=== PATIENT | female | born 1990 | race Caucasian/White ===

== ENCOUNTER 2016-08-16 09:31 | Inpatient (IN) ==
[2016-08-16] MEDS ORDERED: Famotidine 20 MG/2 ML VIAL IVP PRN (09:47)
[2016-08-16] MEDS ORDERED: Naloxone 0.4 MG/ML INJ IVP PRN (09:47)
[2016-08-16 10:37] LABS: Basophils % 0.3 %; Eosinophils # 0.1 K/mcL (0.0-0.6); Eosinophils % 0.6 %; Hematocrit 32.8 % (35.3-44.9); Immature Granulocytes % 0.4 % (0-4); Lymphocytes # 1.2 K/mcL (0.6-4.6); Mean Corpuscular HGB Conc 33.5 g/dL (31.6-35.5); Mean Corpuscular Hemoglobin 30.1 pg (28.0-33.3); Mean Corpuscular Volume 89.9 fL (83.0-100.0); Mean Platelet Volume 10.4 fL (9.4-12.4); Monocytes # 0.7 K/mcL (0.0-1.3); Monocytes % 8.3 %; Neutrophils # 5.9 K/mcL (1.6-8.9); Platelet Count 225 K/mcL (140-400); Red Blood Count 3.65 M/mcL (3.82-4.97); Red Cell Distribution Width 13.7 % (11.5-14.5); Segmented Neutrophils % 75.4 %
[2016-08-16 10:50] LABS: Alanine Aminotransferase 9 Units/L (0-55); Aspartate Amino Transferase 11 Units/L (5-34); BUN/Creatinine Ratio 15 (6-26); Blood Urea Nitrogen 9 mg/dL (7-20); Lactate Dehydrogenase 161 Units/L (159-327); Uric Acid 3.4 mg/dL (2.6-6.0); eGFR For African Americans > 60 (> 60); eGFR For Non-African Americans > 60 (> 60)
--- NOTE | 2016-08-16 11:17 | OB/GYN History & Physical ---
Date of Encounter: 08/16/16 Time of Encounter: 11:12 Assessment and Plan (1) 39 weeks gestation of Current visit: Yes Status: Acute admit for delivery (2) Elevated BP without diagnosis of hypertension Current visit: Yes Status: Acute PIH evaluation (3) Seizure disorder Current visit: Yes Status: Acute Continue medications as prescribed. History of Present Illness Chief complaint: Elevated BP in HPI: Ms. Velazquez is a 26 year old female at 39w6d with EDC of 08/17/2016 was sent to labor and delivery from OB office for PIH evaluation due to elevated BPs in office. Plan is to keep patient for IOL tomorrow for Dr. Harvey. Patient reports +FM, Denies contractions, LOF, patient denies headache, visual disturbances or epigastric pain. Patient does report seizure disorder and currently takes daily medication. Blood type: A Negative, Rubella: Immune, Hep B: Negative, GBS: Negative. PIH labs and protein creatinine ration was ordered. Past Med Surg Social Fam HX - Past Medical History Source: patient Medical history: seizures Psychiatric history: no psych history - Past Surgical History Surgical History: no surgical history - Social History Smoking Status: Never smoker Smokeless Tobacco Status: No Alcohol use: none Drug use: none Activity Level: Independent ambulation Recent Out of Country Travel Within the Last 8 Weeks: No Exposure or Possible Exposure to Illness During Travel: No - Family History Mother History Unknown: Yes Hx Family Cardiac Disorders: No Hx Family Respiratory Disorders: No Hx Family Cancer: No Hx Family GI Disorders: No Hx Family Endocrine Disorder: No Hx Family Neuromuscular Disorders: No Hx Family Neurologic Disorders: No Hx Family HEENT Disorders: No Hx Family Autoimmune Disorders: No Hx Family Medical Disorders: No (states mother is healthy with no known medical disorders) Obstetrical History - Pregnancies : 2 Para: 0 Term: 0 : 0 Ab's: 1 Livin Medications and Allergies Oxcarbazepine [Trileptal] 300 mg PO BID 04/23/16 [History] Pnv No.122/Iron/Folic Acid [ Multi Tablet] 1 each PO DAILY 04/23/16 [ History] Allergies Cinnamon Allergy (Verified 08/16/16 09:46) Swelling of Lip/Tongue/Throat Review of System OB - Constitutional Constitutional ROS IM: no fever(s), no headache(s), no weight loss - Cardiovascular Cardiovascular: edema (bilateral feet), no chest pain, no dyspnea, no rapid heart rate, no slow heart rate, no syncope - Respiratory Respiratory: no dyspnea - Gastrointestinal Gastrointestinal: no cramping, no diarrhea, no nausea, no vomiting - Genitourinary Genitourinary: no abnormal vaginal bleeding, no difficulty urinating, no dysuria , no flank pain, no urinary frequency, no urinary hesitancy, no urinary incontinence, no vaginal discharge, no vaginal odor, no vaginal pruritis Exam - Constitutional Constitutional: well developed, well nourished, no acute distress, average body habitus - HEENT HEENT: Normocephaly, Mucus Membranes Moist - Neck Neck exam: full ROM, supple - Lungs Respiratory exam: CTAB - Cardiovascular Cardiovascular exam: RRR, +S1, +S2 - Breasts Breast: bilateral: normal - Abdomen Abdomen: Present: bowel sounds normal, gravid, non tender - Extremities Extremities exam: full ROM, normal capillary refill, pedal edema (1+) Deep Tendon Reflex Grade: 2+ Normal - Vagina Vagina: Present: normal moisture - Uterus Uterus exam: Present: normal size, normal contour - Comments Comments: FHR 135 bpm moderate variability +15x15 accels no decels noted. Cat. 1 tracing. no contractions noted. Results Result Diagrams: 08/16/16 10:28 08/16/16 10:28 Abnormal lab results RBC 3.65 M/mcL (3.82-4.97) L 08/16/16 10:28 Hgb 11.0 g/dL (11.5-15.4) L 08/16/16 10:28 Hct 32.8 % (35.3-44.9) L 08/16/16 10:28 All other labs normal. - VTE Reasons for not Prescribing Prophylaxis: Treatment not Indicated - Low risk for VTE
[2016-08-16 11:43] LABS: Protein/Creatinine Ratio,Urine 0.24 mg/mg (0-0.20)
[2016-08-16] MEDS: OXcarbazepine 150 MG TABLET PO SCH (20:16)
[2016-08-17] MEDS: OXcarbazepine 150 MG TABLET PO SCH ×2 (09:01→21:27)
[2016-08-17] MEDS ORDERED: Naloxone 0.4 MG/ML INJ IVP PRN (09:29)
[2016-08-17] MEDS ORDERED: Famotidine 20 MG/2 ML VIAL IVP PRN (09:29)
--- NOTE | 2016-08-17 09:31 | OB/GYN Progress Note ---
Date of Encounter: 08/17/16 Time of Encounter: 09:29 - Assessment and Plan (1) 40 weeks gestation of Current Visit: Yes Status: Acute (2) Elevated BP without diagnosis of hypertension Current Visit: Yes Status: Acute (3) Seizure disorder Current Visit: Yes Status: Chronic Subjective - Subjective Interval history: R/B induction discussed . Objective - Vital Signs Vital Signs: Vital Signs Temp Pulse Pulse Resp BP Pulse Ox 08/17/16 07:30 98.0 F 92 16 134/84 08/17/16 04:50 97.9 F 77 14 131/79 99 08/17/16 00:15 98.2 F 83 14 126/82 98 08/16/16 20:11 98.3 F 82 16 137/79 98 08/16/16 20:00 80 16 08/16/16 15:51 98.1 F 76 18 131/76 97 08/16/16 12:40 98.3 F 89 16 129/94 97 Intake and Output 08/16/16 08/17/16 08/17/16 23:59 07:59 15:59 Intake Total 360 / 360 Output Total 500 / 500 900 / 900 Balance -140 / -140 -900 / -900 Intake: Oral 360 / 360 Output: Urine 500 / 500 900 / 900 Other: Meal Dinner Percent of Meal Consumed 100% Weight 99.155 kg Patient Weight 08/17/16 23:59 Weight 99.155 kg - Exam FHR: category 1 Cervical dilation: 3-4 Cervix effacement: 60 station: -1 - Labs Labs: Abnormal lab results RBC 3.65 M/mcL (3.82-4.97) L 08/16/16 10:28 Hgb 11.0 g/dL (11.5-15.4) L 08/16/16 10:28 Hct 32.8 % (35.3-44.9) L 08/16/16 10:28 Protein/Creatinin Ratio 0.24 mg/mg (0-0.20) H 08/16/16 11:22 Urine Total Protein 18 mg/dL (1-14) H 08/16/16 11:22
[2016-08-17] MEDS ORDERED: diazePAM 10 MG/2 ML SYRINGE IVP PRN (09:39)
[2016-08-17] MEDS ORDERED: *HR* Nalbuphine 20 MG/ML AMPUL IVP PRN (09:41)
[2016-08-17] MEDS ORDERED: D5% in 0.45% NACL 1,000 ML IVC SCH (09:45)
[2016-08-17] MEDS ORDERED: miSOPROStol 25 MCG TABLET PO ONE (10:00)
[2016-08-17] MEDS ORDERED: Ringers Solution, Lactated 1,000 ML ONE ×2 (10:58→18:37)
--- NOTE | 2016-08-17 14:41 | OB/GYN Progress Note ---
Date of Encounter: 08/17/16 Time of Encounter: 14:38 - Assessment and Plan (1) 40 weeks gestation of Current Visit: Yes Status: Acute (2) Elevated BP without diagnosis of hypertension Current Visit: Yes Status: Acute (3) Seizure disorder Current Visit: Yes Status: Chronic Subjective - Subjective Interval history: Management discussed Objective - Vital Signs Vital Signs: Vital Signs Temp Pulse Pulse Resp BP Pulse Ox 08/17/16 07:30 98.0 F 92 16 134/84 08/17/16 04:50 97.9 F 77 14 131/79 99 08/17/16 00:15 98.2 F 83 14 126/82 98 08/16/16 20:11 98.3 F 82 16 137/79 98 08/16/16 20:00 80 16 08/16/16 15:51 98.1 F 76 18 131/76 97 Intake and Output 08/16/16 08/17/16 08/17/16 23:59 07:59 15:59 Intake Total 360 / 360 Output Total 500 / 500 900 / 900 Balance -140 / -140 -900 / -900 Intake: Oral 360 / 360 Output: Urine 500 / 500 900 / 900 Other: Meal Dinner Percent of Meal Consumed 100% Weight 99.155 kg Patient Weight 08/17/16 23:59 Weight 99.155 kg - Exam Cervical dilation: 3-4 Cervix effacement: 80 station: -1 - Labs Labs: Abnormal lab results RBC 3.65 M/mcL (3.82-4.97) L 08/16/16 10:28 Hgb 11.0 g/dL (11.5-15.4) L 08/16/16 10:28 Hct 32.8 % (35.3-44.9) L 08/16/16 10:28 Protein/Creatinin Ratio 0.24 mg/mg (0-0.20) H 08/16/16 11:22 Urine Total Protein 18 mg/dL (1-14) H 08/16/16 11:22
[2016-08-17] MEDS ORDERED: Oxytocin 20 units/ LR 1000 mL 20 UNIT/1,000 ML BAG IVC SCH (15:39)
[2016-08-17] MEDS ORDERED: Oxytocin 20 units/ LR 1000 mL 20 UNIT/1,000 ML BAG IVC ONE (15:42)
[2016-08-17] MEDS ORDERED: *HR* FentaNYL (PF) 100 MCG/2 ML VIAL EP ONE (17:42)
[2016-08-17] MEDS ORDERED: Bupivacaine-MPF 0.25% 10 ML VIAL EP ONE (17:42)
[2016-08-17] MEDS ORDERED: Epidural Premix (fent/bupiv) 110 ML EP SCH (17:45)
[2016-08-17] MEDS ORDERED: Epidural Premix (fent/bupiv) 110 ML EP ONE (17:57)
--- NOTE | 2016-08-17 19:30 | Anesthesia Evaluation PreOp ---
Date of Encounter: 08/17/16 Time of Encounter: 10:15 - Past History Planned Operation: labor Cardiac History: Denies any Significant Hx Pulmonary History: Denies Any Significant HX [employer]OND WATCH [employer]GEANT History: Seizures (last 4 months ago) Other Medical History: Denies Any Significant HX Anesthesia History: No Prior Anesthetic Complications (never had anesthesia) : Yes Test: Positive Alcohol Use: none Drug use: none Medications and Allergies Oxcarbazepine [Trileptal] 300 mg PO BID 04/23/16 [History] Pnv No.122/Iron/Folic Acid [ Multi Tablet] 1 each PO DAILY 04/23/16 [ History] Allergies Cinnamon Allergy (Verified 08/16/16 09:46) Swelling of Lip/Tongue/Throat - Meds/Allergy Pre-op Review Medications Reviewed: Yes Allergies Reviewed: Yes Beta Blockers on Current Med List: No Anesthesia Results - Labs 08/16/16 10:28 08/16/16 10:28 Anesthesia Exam 3 Vital Signs Time 1015 BP 128/90 Pulse 85 Resp 16 O2 Sat Height: 65 Weight: 213 pounds NPO (# of Hours): ate at 1500 lunch Pain Scale: 7 (at 1800 before epidural placement) Pain Scale Used: Numeric (1 - 10) - HEENT Pupil (Motor): Pupils equal Mallampati: III Teeth: Normal Oral Opening: Greater than 3 - SECOND WATCH SERGEANT LOC: Oriented SECOND WATCH [employer]GEANT Motor: Normal RUE, Normal LUE, Normal RLE, Normal LLE, Normal Face [employer] W[employer]GE[employer] Sensory: Normal: RUE, LUE, RLE, LLE, Face - Cardiac Rhythm: Regular Murmur: None JVD: No Carotid Bruit: No - Pulmonary Breath Sounds: bilateral Clear, bilateral Rales, bilateral Rhonchi Respiratory Effort: Symmetrical Anesthesia Assess/Plan ASA Score: 3 Modified Raul Scale for Level of Consciousness: Cooperative, oriented, and tranquil Anesthetic Plan: Regional Recovery Plan: Other
--- NOTE | 2016-08-17 19:36 | Anesthesia Procedures ---
Date of Encounter: 08/17/16 Time of Encounter: 18:00 Procedures: Anesthesia - Epidural/Spinal Patient ID/Chart reviewed: Yes Patient examined: Yes OB Eval: Gestational age: 39 weeks 6 days OB Eval: : 2 OB Eval: Hx Para: 0 OB Eval: Dilated at (cm): 4 OB Eval: Contractions: Non-stressed pattern Consent Obtained: Yes Supplemental Oxygen: None/Room Air Site Prep: Aseptic Technique, Sterile prep and drape, Povidone-Iodine 1% Patient position: upright Local Anesthetic: Lidocaine 1% Amount of Local Anesthetic used: 6 (3 ml at each interspace) Touhy Needle Gauge: 18 Touhy Needle Depth (cm): 6 Catheter Depth at Skin (cm): 13 Test Dose (1.5% Lido + Epi): Volume given (mls): 3 (3 ml at each interspace) Test Dose Result: Negative Loading Dose: 0.25% Marcaine (mls): 5 Loading Dose: Fentanyl (mcg): 100 Loading Dose: Other: 3 ml saline Loading Dose Administered: Thru Catheter Infusion Med: 0.125% Bupivacaine w/ 2 mcg/ml Fentanyl Infusion Rate (mls/hr): [address]: Tegaderm Interspace Used: L3-L4 Loss of Resistance (LUIS): Yes (air) Blood: Yes (l4/l5 interspace cath removed due to blood aspiration) CSF: No Paresthesia: No Procedure: 3 Vital Signs Time 1800 start 1814 cath 1825 1834 removal 1846 cath 1849 bolus BP 143/90 143/66 134/80 136/84 151/68 145/89 Pulse 91 84 93 92 96 95 Resp 16 16 16 16 16 16 O2 Sat 97 97 96 96 97 96 patient placed sitting for epidural placement, L4/L5, luis technique used with air, epidural space encountered at 7 cm, cath placed to 12 cm at skin, test dose negative, patient placed supine and with bolus aspiration blood was noted in cath, cath withdrawn 2 cm, flushed with 5 ml saline, blood still present, 1834 cath removed and patient sat back up and epidural placement restarted at L3 /L4 interspace, epidural needle advanced using luis technique with air and epidural space encountered at 6 cm, cath placemnt with ease to 13 cm at skin, test dose negative, bolus dose given in 3.33 ml increments, patient tolerated well. 1900 pump started at 14 ml per hour, patient comfortable. 3 Vital Signs Time 1900 BP 127/75 Pulse 82 Resp 16 O2 Sat 96
--- NOTE | 2016-08-17 19:52 | OB/GYN Progress Note ---
Date of Encounter: 08/17/16 Time of Encounter: 19:50 - Assessment and Plan (1) 40 weeks gestation of Current Visit: Yes Status: Acute (2) Elevated BP without diagnosis of hypertension Current Visit: Yes Status: Acute (3) Seizure disorder Current Visit: Yes Status: Chronic Subjective - Subjective Interval history: Patient is comfortable with epidural. AROM - light meconium . IUPC placed . Objective - Vital Signs Vital Signs: Vital Signs Temp Pulse Pulse Resp BP Pulse Ox 08/17/16 07:30 98.0 F 92 16 134/84 08/17/16 04:50 97.9 F 77 14 131/79 99 08/17/16 00:15 98.2 F 83 14 126/82 98 08/16/16 20:11 98.3 F 82 16 137/79 98 08/16/16 20:00 80 16 Intake and Output 08/17/16 08/17/16 08/17/16 07:59 15:59 23:59 Output Total 900 / 900 Balance -900 / -900 Output: Urine 900 / 900 Other: Meal Lunch Percent of Meal Consumed 100% Weight 99.155 kg Patient Weight 08/17/16 23:59 Weight 99.155 kg - Exam Cervical dilation: 6 Cervix effacement: 80 station: -1 - Labs Labs: Abnormal lab results RBC 3.65 M/mcL (3.82-4.97) L 08/16/16 10:28 Hgb 11.0 g/dL (11.5-15.4) L 08/16/16 10:28 Hct 32.8 % (35.3-44.9) L 08/16/16 10:28 Protein/Creatinin Ratio 0.24 mg/mg (0-0.20) H 08/16/16 11:22 Urine Total Protein 18 mg/dL (1-14) H 08/16/16 11:22
--- NOTE | 2016-08-17 22:48 | OB/GYN Progress Note ---
Date of Encounter: 08/17/16 Time of Encounter: 22:47 - Assessment and Plan (1) 40 weeks gestation of Current Visit: Yes Status: Acute (2) Elevated BP without diagnosis of hypertension Current Visit: Yes Status: Acute (3) Seizure disorder Current Visit: Yes Status: Chronic Subjective - Subjective Interval history: Patient comfortable with epidural Objective - Vital Signs Vital Signs: Vital Signs Temp Pulse Resp BP Pulse Ox 08/17/16 07:30 98.0 F 92 16 134/84 08/17/16 04:50 97.9 F 77 14 131/79 99 08/17/16 00:15 98.2 F 83 14 126/82 98 Intake and Output 08/17/16 08/17/16 08/17/16 07:59 15:59 23:59 Output Total 900 / 900 Balance -900 / -900 Output: Urine 900 / 900 Other: Meal Lunch Percent of Meal Consumed 100% Weight 99.155 kg Patient Weight 08/17/16 23:59 Weight 99.155 kg - Exam FHR: category 1 Cervical dilation: 7 Cervix effacement: 100 station: 0 - Labs Labs: Abnormal lab results RBC 3.65 M/mcL (3.82-4.97) L 08/16/16 10:28 Hgb 11.0 g/dL (11.5-15.4) L 08/16/16 10:28 Hct 32.8 % (35.3-44.9) L 08/16/16 10:28 Protein/Creatinin Ratio 0.24 mg/mg (0-0.20) H 08/16/16 11:22 Urine Total Protein 18 mg/dL (1-14) H 08/16/16 11:22
[2016-08-17] MEDS ORDERED: *HR* Ropivacaine/PF 0.2% 10 ML AMPUL ONE (23:19)
--- NOTE | 2016-08-17 23:40 | Anesthesia Progress Note ---
Date of Encounter: 08/17/16 Time of Encounter: 23:20 Anesthesia Note - Note Note: 08/17/16 23:36 patient complaining of low abdominal cramping, and vaginal pressure. Bolus dose of ropivicaine 0.2% 10 ml given over 10 minutes in 3.33 ml increments. patient tolerated well. heart tones 135 throughout, 2330 finish 137/80, p 68. 3 Vital Signs Time 2320 2325 BP 137/78 134/73 Pulse 78 89 Resp 16 16 O2 Sat 100 100
[2016-08-17] MEDS ORDERED: Mag Hydrox/Al Hydrox/Simeth 30 ML UDC PO ONE (23:48)
[2016-08-18] MEDS ORDERED: Epidural Premix (fent/bupiv) 110 ML EP ONE ×2 (01:23→10:07)
[2016-08-18] MEDS ORDERED: Ringers Solution, Lactated 1,000 ML ONE (03:49)
[2016-08-18] MEDS ORDERED: Bupivacaine-MPF 0.25% 10 ML VIAL ONE (05:58)
[2016-08-18] MEDS ORDERED: Lidocaine/EPI 1:200k 2% PF 20 ML VIAL ONE ×2 (05:59→08:44)
--- NOTE | 2016-08-18 06:32 | Anesthesia Progress Note ---
Date of Encounter: 08/18/16 Time of Encounter: 06:06 Anesthesia Note - Note Note: 08/18/16 06:27 0605 3 Vital Signs Time 06 0614 0621 BP 130/88 127/60 134/63 Pulse 89 87 81 Resp 18 18 18 O2 Sat 98 98 98 patient having pain in lower abd region and perineum region rating pain 10/10. bolus dose 5 ml 2% lidocaine with epi given with negative aspiration. negative test result form bolus. sensory level below t10, additional bolus of 7 ml bupivicaine 0.125% given, again with negative aspiration in 2 divided doses.
--- NOTE | 2016-08-18 07:28 | OB/GYN Progress Note ---
Date of Encounter: 08/18/16 Time of Encounter: 07:25 - Assessment and Plan (1) 40 weeks gestation of Current Visit: Yes Status: Acute (2) Elevated BP without diagnosis of hypertension Current Visit: Yes Status: Acute (3) Seizure disorder Current Visit: Yes Status: Chronic Subjective - Subjective Interval history: Patient now comfortable with epidural Objective - Vital Signs Vital Signs: Vital Signs Temp Pulse Resp BP 08/17/16 07:30 98.0 F 92 16 134/84 Intake and Output 08/17/16 08/17/16 08/18/16 15:59 23:59 07:59 Intake Total 1600 / 1600 Output Total 1250 / 1250 Balance 350 / 350 Intake: Intake, Autotransfusion 1600 / 1600 Amount Output: Emesis 400 / 400 Estimated Blood Loss 300 / 300 Catheter 550 / 550 Other: Meal Lunch Percent of Meal Consumed 100% - Exam FHR: category 1 Cervical dilation: 8-9 Cervix effacement: 100 station: 0 - Labs Labs: Abnormal lab results RBC 3.65 M/mcL (3.82-4.97) L 08/16/16 10:28 Hgb 11.0 g/dL (11.5-15.4) L 08/16/16 10:28 Hct 32.8 % (35.3-44.9) L 08/16/16 10:28 Protein/Creatinin Ratio 0.24 mg/mg (0-0.20) H 08/16/16 11:22 Urine Total Protein 18 mg/dL (1-14) H 08/16/16 11:22
[2016-08-18] MEDS ORDERED: Ondansetron 4 MG/2 ML VIAL IVP ONE (07:56)
[2016-08-18] MEDS ORDERED: *HR* FentaNYL (PF) 100 MCG/2 ML VIAL ONE (08:44)
--- NOTE | 2016-08-18 08:56 | Anesthesia Progress Note ---
Date of Encounter: 08/18/16 Time of Encounter: 08:53 Anesthesia Note - Note Note: 08/18/16 08:53 called to evaluate patient for increased pain during contractions. rate set to 14ml/hr pcea [id number]. bolus given of 5ml of 2%lidocaine with epi plus 100mcg fentanyl. moderate pain relief achieved.
[2016-08-18] MEDS: OXcarbazepine 150 MG TABLET PO SCH ×2 (09:20→20:24)
[2016-08-18] MEDS ORDERED: Lidocaine 1% 20 ML MDV ONE (10:29)
[2016-08-18] MEDS ORDERED: Oxytocin 20 units/ LR 1000 mL 20 UNIT/1,000 ML BAG IVC ONE (11:50)
[2016-08-18] MEDS ORDERED: Acetaminophen 325 MG TABLET PO PRN (11:50)
[2016-08-18] MEDS ORDERED: Oxytocin 20 units/ LR 1000 mL 20 UNIT/1,000 ML BAG IV SCH (11:50)
[2016-08-18] MEDS ORDERED: Rho Immune Globulin 1,500 UNIT SYRINGE IM PRN (11:50)
--- NOTE | 2016-08-18 11:53 | OB/GYN Procedure Note ---
Delivery - Delivery Date: 08/18/16 Provider: Stacey Stein Intrapartum events: meconium Delivery induction: AROM, oxytocin, misoprostol Delivery augmentation: rupture of membranes Delivery monitor: external FHT, external uterine, internal uterine Anesthesia: epidural Estimated Blood Loss: 300 - Infant (s) Infant A Delivery Date: 08/18/16 Delivery Time: 11:16 Presentation: vertex Position: GABRIEL Route of delivery: Gender: Female Viability: Viable Pounds: 7 Ounces: 13 at 1 minute: 8 at 5 mins: 9 Shoulder Dystocia: not encountered Specimens collected: cord blood Placenta: spontaneous (malodorous- cultured and sent to pathology) Cord: 3 umbilical vessels - Repair Episiotomy: none Laceration Description: Perineal - 1st Degree - Complications Delivery complications: none Delivery comments: Called to room with patient complete and +2 station. Under maternal effort she delivered a viable female weighing 7 lbs. 13 oz. and Apgars 8 and 9 at one and 5 minutes respectively over a first-degree perineal laceration. Following delivery of the head there was no nuchal cord encountered. The ' s shoulders and body were delivered with maternal effort. Infant was placed on mom's abdomen. Delayed cord clamping was practiced. The cord was clamped and cut. Cord blood was collected. First-degree perineal laceration was repaired using 3-0 Vicryl in standard fashion. Placenta delivered spontaneously, complete , and intact with a three-vessel cord. The placenta will be cultured and sent to pathology for review for suspected chorioamnionitis. Mother and infant are recovering in the LDR in stable condition - Disposition Mom disposition: stable in LDR disposition: stable in LDR
[2016-08-18] MEDS: Ibuprofen 600 MG TABLET PO PRN (15:08)
[2016-08-18] MEDS ORDERED: diazePAM 10 MG/2 ML SYRINGE IVP PRN (16:08)
[2016-08-19] MEDS: OXcarbazepine 150 MG TABLET PO SCH (07:52)
[2016-08-19] MEDS: Ibuprofen 600 MG TABLET PO PRN (07:53)
[2016-08-19 08:14] VITALS: BP 103/65
[2016-08-19] MEDS ORDERED: Prenatal Vit/FA 1 EACH TABLET PO SCH (09:00)
--- NOTE | 2016-08-19 11:30 | Discharge Summary ---
Date of Encounter: 08/19/16 Time of Encounter: 11:27 - Discharge Diagnosis (1) (normal spontaneous vaginal delivery) Priority: Primary Status: Acute Comments: Pt meeting milestones (2) Seizure disorder Priority: Secondary Status: Chronic (3) Rh negative status during in second trimester Priority: Secondary Status: Acute Comments: Rhogam prior to discharge (4) Elevated BP without diagnosis of hypertension Priority: Secondary Status: Acute Comments: BP normal - Discharge Medications Prescriptions: Ibuprofen [Motrin] 600 mg PO Q6HR PRN #60 tablet PRN Reason: Cramping Docusate [Colace] 100 mg PO BID #60 capsule Home Medications: Oxcarbazepine [Trileptal] 300 mg PO BID 04/23/16 [History] Pnv No.122/Iron/Folic Acid [ Multi Tablet] 1 each PO DAILY 04/23/16 [ History] Docusate [Colace] 100 mg PO BID #60 capsule 08/19/16 [Rx] Ibuprofen [Motrin] 600 mg PO Q6HR PRN #60 tablet 08/19/16 [Rx] Allergies/Adverse Reactions: Allergies Cinnamon Allergy (Verified 08/16/16 09:46) Swelling of Lip/Tongue/Throat Data Procedures and tests throughout hospitalization: Laboratory Tests 08/16/16 08/16/16 08/16/16 10:28 10:28 11:22 WBC 7.8 RBC 3.65 L Hgb 11.0 L Hct 32.8 L MCV 89.9 MCH 30.1 MCHC 33.5 RDW 13.7 Plt Count 225 MPV 10.4 Immature Gran % 0.4 Seg Neutrophils % 75.4 Lymphocytes % 15.0 Monocytes % 8.3 Eosinophils % 0.6 Basophils % 0.3 Neutrophils # 5.9 Lymphocytes # 1.2 Monocytes # 0.7 Eosinophils # 0.1 Basophils # 0.0 BUN 9 Creatinine 0.59 Est GFR ( Amer) > 60 Est GFR (Non-Af Amer) > 60 BUN/Creatinine Ratio 15 Uric Acid 3.4 AST 11 ALT 9 Lactate Dehydrogenase 161 Urine Creatinine 75 Protein/Creatinin Ratio 0.24 H Urine Total Protein 18 H Screen Baby's Blood Type Mother's Blood Type Rhogam Indicated Rhogam Req for Mother 08/18/16 12:10 WBC RBC Hgb Hct MCV MCH MCHC RDW Plt Count MPV Immature Gran % Seg Neutrophils % Lymphocytes % Monocytes % Eosinophils % Basophils % Neutrophils # Lymphocytes # Monocytes # Eosinophils # Basophils # BUN Creatinine Est GFR ( Amer) Est GFR (Non-Af Amer) BUN/Creatinine Ratio Uric Acid AST ALT Lactate Dehydrogenase Urine Creatinine Protein/Creatinin Ratio Urine Total Protein Screen NEGATIVE Baby's Blood Type A RH POSITIVE Mother's Blood Type A RH NEGATIVE Rhogam Indicated YES Rhogam Req for Mother 1 Labs on day of discharge: Labs from last 24 hours 08/18/16 12:10 Screen NEGATIVE Baby's Blood Type A RH POSITIVE Mother's Blood Type A RH NEGATIVE Rhogam Indicated YES Rhogam Req for Mother 1 Date of admission: 08/16/16 09:31 Primary care physician: PCP IRASEMA Discharging clinician: Gabriela Helton Anticipated date of discharge: 08/19/16 - Patient Status Disposition: Home, Self-Care Condition: Good Functional capacity at discharge: independent ambulation Overall status at discharge: patient is progressing back to baseline - Discharge Instructions Follow Up With: NO,PCP [Primary Care Provider] - - Diet and Activity Activity: increase activity as tolerated Diet: advance to your usual diet Hospital Course Reason for admission: induction of labor Delivery: Episiotomy: none Laceration: 1st degree Other procedures: none complications: none Discharge diagnosis: IUP at term delivered baby: female Hospital course: - Delivery Date: 08/18/16 Provider: Stacey Stein Intrapartum events: meconium Delivery induction: AROM, oxytocin, misoprostol Delivery augmentation: rupture of membranes Delivery monitor: external FHT, external uterine, internal uterine Anesthesia: epidural Estimated Blood Loss: 300 - (s) A Delivery Date: 08/18/16 Infant Delivery Time: 11:16 Presentation: vertex Position: GABRIEL Route of delivery: Gender: Female Viability: Viable Pounds: 7 Ounces: 13 at 1 minute: 8 at 5 mins: 9 Shoulder Dystocia: not encountered Specimens collected: cord blood Placenta: spontaneous (malodorous- cultured and sent to pathology) Cord: 3 umbilical vessels - Repair Episiotomy: none Laceration Description: Perineal - 1st Degree Time Attestation: Total time spent providing and/or coordinating discharge services: Time Spent: Less than 30 minutes Exam - Constitutional Vitals: Temp Pulse Resp BP Pulse Ox 97.9 F 85 16 103/65 98 08/19/16 07:30 08/19/16 07:30 08/19/16 07:30 08/19/16 07:30 08/19/16 04:35 General appearance IM: A&O X 3, pleasant, no acute distress - Respiratory Respiratory exam: Present: CTAB - Cardiovascular Cardiovascular exam IM: Present: RRR, +S1, +S2 - GI/Abdominal GI/Abdominal exam IM: soft - Rectal Rectal exam: deferred - Uterine Tone: Firm - Extremities Exam Extremities exam IM: Present: normal inspection, pedal edema (1+ bilaterally) - Neurological Exam Neurological exam: normal gait, oriented X3 - Psychiatric Additional comments: reports good mood
== END 2016-08-19 18:15 | disposition home or self-care (01) | DRG 560 ==
LOC: 1NENULAB 09:31 → 1NENUOBS 12:40 → 1NENULAB 08-17 08:41 → 1NENUOBS 08-18 13:58
PROVIDERS: ADMIT Obstetrics & Gynecology; ATTEND Obstetrics & Gynecology

== ENCOUNTER 2017-08-01 06:08 | Inpatient (IN) ==
[2017-08-01] MEDS ORDERED: Famotidine 20 MG/2 ML VIAL IVP PRN (07:07)
[2017-08-01] MEDS ORDERED: Ondansetron 4 MG/2 ML VIAL IVP PRN (07:07)
[2017-08-01] MEDS ORDERED: *HR* Nalbuphine 20 MG/ML AMPUL IVP PRN (07:07)
[2017-08-01] MEDS ORDERED: Naloxone 0.4 MG/ML INJ IVP PRN (07:07)
--- NOTE | 2017-08-01 07:16 | OB/GYN History & Physical ---
Date of Encounter: 08/01/17 Time of Encounter: 07:10 Assessment and Plan (1) Encounter for induction of labor Current visit: Yes Status: Acute Admit for IOL. Cytotec for IOL. AROM when able. Anticipate . (2) 39 weeks gestation of Current visit: No Status: Acute (3) Seizure disorder Current visit: No Status: Chronic no seizures for > 1 year -- on Levetiracetam History of Present Illness Chief complaint: Elective Induction of Labor HPI: Ms. Velazquez is a 27 year old female at 39 weeks 1 day gestational age presents to L&D for induction of labor. High risk due to short intergestational interval. Med history positive for epilepsy on Levetiracetam. No contractions, positive movement, no bleeding, no leakage of fluid. A-, neg GDM, neg PIH GBS negative, rubella immune, varicella immune, all other serologies negative. Past Med Surg Social Fam HX - Past Medical History Attestation: Yes The following information was validated with the patient. Source: patient Medical history: seizures Psychiatric history: no psych history - Past Surgical History Surgical History: no surgical history - Social History Smoking Status: Never smoker Smokeless Tobacco Status: No Alcohol use: none Drug use: none - Family History Mother Hx Family Cardiac Disorders: No Hx Family Respiratory Disorders: No Hx Family Cancer: No Hx Family GI Disorders: No Hx Family Endocrine Disorder: No Hx Family Neuromuscular Disorders: No Hx Family Neurologic Disorders: No Hx Family HEENT Disorders: No Hx Family Autoimmune Disorders: No Obstetrical History - Pregnancies : 2 Para: 1 - History/Complications History/Complications: short intergestational period Medications and Allergies Ferrous Sulfate 08/01/17 [History] Folic Acid 08/01/17 [History] Tablet 08/01/17 [History] Trileptal 1,000 mg BID 08/01/17 [History] 3 Allergy/AdvReac Type Severity Reaction Status Date / Time cinnamon [Cinnamon] Allergy Swelling Verified 08/01/17 06:29 of Lip/Tongue/Throat Review of System OB All systems PM: reviewed and no additional remarkable complaints except as stated (Denies fevers, myalgias, scotomata, blurred vision, headache, chest pain , palpitations, shortness of air, upper abdominal pain, nausea, vomiting, diarrhea, dysuria, or pedal edema.) Exam - Vital Signs Vital signs: Gen: AOx3, no acute distress, well-nourished HEENT: normocephalic, no scleral icterus/injection, pupils equal/round, oral mucosa pink/moist Cardio: RRR without murmurs or gallops Pulm: CTAB, no wheezes/rales/rhonchi, normal respiratory effort Abd: soft, nontender, gravid uterus : no visible lesions on external exam, speculum exam reveals... -- cervix/station: 4cm dilation, 50% effaced, -3 pelvic station Ext/Neuro: pulses 2+ b/l DP, no pedal edema, patellar reflexes 2+ b/l - Constitutional Constitutional: well developed, well nourished - HEENT HEENT: Mucus Membranes Moist - Lungs Respiratory exam: CTAB - Cardiovascular Cardiovascular exam: RRR - Abdomen Abdomen: Present: gravid, non tender - Extremities Extremities exam: normal inspection - Cervix Dilation: 4 Effacement: 50 Station: -3 Results Result Diagrams: 08/01/17 07:10 All other labs normal.
--- NOTE | 2017-08-01 07:25 | Anesthesia Evaluation PreOp ---
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) Other Medical History: GERD Anesthesia History: No Prior Anesthetic Complications, Past Anesthesia (eliot) : Yes Test: Positive Alcohol Use: none Drug use: none Medications and Allergies Pnv No.122/Iron/Folic Acid [ Multi Tablet] 1 each PO DAILY 04/23/16 [ History] 3 Allergy/AdvReac Type Severity Reaction Status Date / Time cinnamon [Cinnamon] Allergy Swelling Verified 08/01/17 06:29 of Lip/Tongue/Throat - Meds/Allergy Pre-op Review Medications Reviewed: Yes Allergies Reviewed: Yes Beta Blockers on Current Med List: No Anesthesia Exam 121/65 86 16 fht 152 Height: 5'4" Weight: 99 kg NPO (# of Hours): 2 Pain Scale: 3 Pain Scale Used: Numeric (1 - 10) - HEENT Pupil (Motor): Pupils equal Mallampati: II Teeth: Normal Oral Opening: Greater than 3 - SUPPLY CHAIN ANALYST LOC: Oriented SUPPLY CHAIN ANALYST Motor: Normal RUE, Normal LUE, Normal RLE, Normal LLE, Normal Face SUPPLY CHAIN ANALYST Sensory: Normal: RUE, LUE, RLE, LLE, Face - Cardiac Rhythm: Regular Murmur: None - Pulmonary Breath Sounds: bilateral Clear Respiratory Effort: Symmetrical Anesthesia Assess/Plan ASA Score: 2 Modified Bergholz Scale for Level of Consciousness: Cooperative, oriented, and tranquil Anesthetic Plan: Regional (risks discussed, questions answered, consented) Autologous Blood: No Monitoring Plan: Standard Monitors Recovery Plan: Other
[2017-08-01 07:26] LABS: Basophils % 0.3 %; Eosinophils # 0.1 K/mcL (0.0-0.6); Eosinophils % 0.9 %; Hematocrit 32.4 % (35.3-44.9); Immature Granulocytes % 0.4 % (0-4); Lymphocytes # 1.4 K/mcL (0.6-4.6); Lymphocytes % 20.4 %; Mean Corpuscular Hemoglobin 31.3 pg (28.0-33.3); Mean Platelet Volume 9.8 fL (9.4-12.4); Monocytes # 0.7 K/mcL (0.0-1.3); Monocytes % 9.3 %; Neutrophils # 4.8 K/mcL (1.6-8.9); Platelet Count 193 K/mcL (140-400); Red Blood Count 3.52 M/mcL (3.82-4.97); Red Cell Distribution Width 13.6 % (11.5-14.5); Segmented Neutrophils % 68.7 %
[2017-08-01] MEDS: miSOPROStol 25 MCG TABLET PO PRN ×2 (08:10→12:56)
[2017-08-01 08:38] LABS: Amphetamine Screen,Urine Negative ng/mL (Cutoff=1000); Barbiturate Screen,Urine Negative ng/mL (Cutoff=200); Benzodiazepines Screen,Urine Negative ng/mL (Cutoff=200); Cannabinoid Screen,Urine Negative ng/mL (Cutoff = 50); Cocaine Screen,Urine Negative ng/mL (Cutoff= 300); Opiate Screen,Urine Negative ng/mL (Cutoff=300); Phencyclidine Screen,Urine Negative ng/mL (Cutoff=25)
--- NOTE | 2017-08-01 12:14 | OB Labor Progress Note ---
Date of Encounter: 08/01/17 Time of Encounter: 12:11 Labor Progress Note - Subjective Subjective: Patient resting quietly with eyes closed. - Heart Tones Heart Tones: 125 bpm, moderate variability, + 15x15 accels, no decels. - [place]: Irregular contractions. - Interventions Interventions: No interventions at this time. Patient resting. - Plan Plan: Administer a second dose of Cytotec po at least 4 hours after first dose. Continue labor management.
[2017-08-01] MEDS: Ringers Solution, Lactated 1,000 ML IVC SCH ×2 (16:14→18:31)
[2017-08-01] MEDS ORDERED: *HR* FentaNYL (PF) 100 MCG/2 ML VIAL EP ONE (16:14)
[2017-08-01] MEDS ORDERED: Bupivacaine-MPF 0.25% 10 ML VIAL EP ONE (16:14)
[2017-08-01] MEDS ORDERED: Epidural Premix (fent/bupiv) 110 ML EP SCH (16:15)
[2017-08-01] MEDS ORDERED: Epidural Premix (fent/bupiv) 110 ML EP ONE ×3 (16:20→23:40)
--- NOTE | 2017-08-01 16:52 | OB Labor Progress Note ---
Date of Encounter: 08/01/17 Time of Encounter: 15:56 Labor Progress Note - Subjective Subjective: Patient sitting up in bed, denies pain at this time. - Cervix Cervix: 4-5/80/-1 - Heart Tones Heart Tones: 120 bpm, moderate variability, + 15x15 accels, no decels - [place]: 2-4 minutes - Interventions Interventions: SVE AROM for moderate amount of clear fluid. - Plan Plan: Continue labor management Consult anesthesia for epidural placement Pitocin augmentation if needed after 1700
[2017-08-01] MEDS ORDERED: OXcarbazepine 150 MG TABLET PO SCH (18:15)
--- NOTE | 2017-08-01 18:15 | Anesthesia Procedures ---
Date of Encounter: 08/01/17 Time of Encounter: 16:44 Procedures: Anesthesia - Epidural/Spinal Patient ID/Chart reviewed: Yes Patient examined: Yes OB Eval: Gestational age: 39 OB Eval: : 2 OB Eval: Hx Para: 1 OB Eval: Dilated at (cm): 4 OB Eval: Contractions: Non-stressed pattern Consent Obtained: Yes Supplemental Oxygen: None/Room Air Site Prep: Aseptic Technique, Sterile prep and drape, Povidone-Iodine 1% Patient position: upright Local Anesthetic: Lidocaine 1% Amount of Local Anesthetic used: 3 Touhy Needle Gauge: 18 Touhy Needle Depth (cm): 5 Catheter Depth at Skin (cm): 17 Test Dose (1.5% Lido + Epi): Volume given (mls): 3 Test Dose Result: Negative Loading Dose: 0.25% Marcaine (mls): 8 Loading Dose: Fentanyl (mcg): 100 Loading Dose Administered: Thru Catheter Infusion Med: 0.125% Bupivacaine w/ 2 mcg/ml Fentanyl Infusion Rate (mls/hr): [address]: Tegaderm, Tape Interspace Used: L3-L4 Loss of Resistance (LUIS): Yes Blood: No CSF: No Paresthesia: No Vitals + FHT's: 3 Vital Signs Time 1644 1701 1705 1710 1715 BP 130/66 124/67 121/67 120/62 120/58 Pulse 85 69 72 74 75 FHTs 120 120 120 120 120
[2017-08-01] MEDS ORDERED: Oxytocin 20 units/ LR 1000 mL 20 UNIT/1,000 ML BAG IVC SCH (21:00)
[2017-08-01] MEDS ORDERED: Bupivacaine-MPF 0.25% 10 ML VIAL ONE (22:02)
[2017-08-01] MEDS ORDERED: *HR* FentaNYL (PF) 100 MCG/2 ML VIAL ONE (22:02)
--- NOTE | 2017-08-02 00:46 | OB/GYN Procedure Note ---
Delivery - Delivery Date: 08/02/17 Provider: Jeffrey Harvey Intrapartum events: none Delivery induction: misoprostol Delivery augmentation: pitocin Delivery monitor: external FHT, external uterine Anesthesia: epidural Estimated Blood Loss: 200 - Infant (s) A Infant Delivery Date: 08/02/17 Infant Delivery Time: 00:15 Presentation: vertex Position: LOT Route of delivery: Gender: Male Viability: Viable Pounds: 8 Ounces: 5 at 1 minute: 6 at 5 mins: 9 Shoulder Dystocia: not encountered Specimens collected: cord blood Placenta: spontaneous - Repair Episiotomy: none Laceration Description: None - Complications Delivery complications: none - Disposition Mom disposition: stable in LDR disposition: stable in LDR - Comments Comments: Patient progressed to complete and on the perineum. delivered over an intact perineum from the left occiput transverse position. The infant had poor respiratory effort so the decision was made to proceed with clamping and cutting the umbilical cord. The infant was taken to the warmer. With stimulation the baby responded and had Apgars of 6 and 9. Baby weighed 8/5. Placenta delivered spontaneously intact. Estimated blood loss was 200 mL.
[2017-08-02] MEDS ORDERED: Rho Immune Globulin 1,500 UNIT SYRINGE IM PRN (01:30)
[2017-08-02] MEDS ORDERED: Acetaminophen 325 MG TABLET PO PRN (01:30)
[2017-08-02] MEDS ORDERED: Oxytocin 20 units/ LR 1000 mL 20 UNIT/1,000 ML BAG IVC SCH (01:30)
[2017-08-02] MEDS ORDERED: Measles/Mumps/Rubella Vacc 0.5 ML VIAL SQ PRN (01:30)
[2017-08-02 03:40] LABS: Basophils % 0.2 %; Eosinophils % 0.1 %; Hemoglobin 12.3 g/dL (11.5-15.4); Immature Granulocytes % 0.3 % (0-4); Lymphocytes # 0.7 K/mcL (0.6-4.6); Lymphocytes % 6.3 %; Mean Corpuscular HGB Conc 34.2 g/dL (31.6-35.5); Mean Corpuscular Hemoglobin 31.6 pg (28.0-33.3); Mean Corpuscular Volume 92.5 fL (83.0-100.0); Mean Platelet Volume 10.7 fL (9.4-12.4); Monocytes # 0.7 K/mcL (0.0-1.3); Monocytes % 6.2 %; Neutrophils # 10.2 K/mcL (1.6-8.9); Platelet Count 206 K/mcL (140-400); Red Blood Count 3.89 M/mcL (3.82-4.97); Red Cell Distribution Width 13.6 % (11.5-14.5); Segmented Neutrophils % 86.9 %
[2017-08-02] MEDS ORDERED: OXCARBAZEPINE PO SCH (09:00)
[2017-08-02] MEDS: Ibuprofen 600 MG TABLET PO PRN ×2 (09:41→16:15)
[2017-08-02] MEDS: Prenatal Vit/FA 1 EACH TABLET PO SCH (09:42)
[2017-08-02] MEDS: OXcarbazepine 150 MG TABLET PO SCH (21:34)
[2017-08-03 08:24] VITALS: BP 125/66
--- NOTE | 2017-08-03 10:26 | Discharge Summary ---
Date of Encounter: 08/03/17 Time of Encounter: 10:22 - Discharge Diagnosis (1) (normal spontaneous vaginal delivery) Priority: Primary Status: Acute Comments: Pt reports she is feeling well and ready for discharge VSS Voiding and stooling without difficulty Tolerating regular diet Ambulating independently Pain controlled with PO medications Denies history of PPD - precautions given Lochia light Ready for discharge today (2) Seizure disorder Priority: Secondary Status: Chronic - Discharge Medications Prescriptions: Ibuprofen [Motrin] 600 mg PO Q6HR PRN #30 tablet PRN Reason: Cramping Docusate [Colace] 100 mg PO BID #30 capsule Home Medications: Tablet 08/01/17 [History] Trileptal 1,000 mg BID 08/01/17 [History] Acetaminophen [Tylenol] 650 mg PO Q6HR PRN tablet 08/03/17 [Rx] Docusate [Colace] 100 mg PO BID #30 capsule 08/03/17 [Rx] Ibuprofen [Motrin] 600 mg PO Q6HR PRN #30 tablet 08/03/17 [Rx] OXcarbazepine [Trileptal] 600 mg PO BID tablet 08/03/17 [Rx] Vit/FA 1 each PO DAILY tablet 08/03/17 [Rx] Allergies/Adverse Reactions: 3 Allergy/AdvReac Type Severity Reaction Status Date / Time cinnamon [Cinnamon] Allergy Swelling Verified 08/01/17 06:29 of Lip/Tongue/Throat Data Procedures and tests throughout hospitalization: Laboratory Tests 08/01/17 08/01/17 08/02/17 07:10 08:19 01:32 WBC 7.0 11.7 H D RBC 3.52 L 3.89 Hgb 11.0 L 12.3 Hct 32.4 L 36.0 MCV 92.0 92.5 MCH 31.3 31.6 MCHC 34.0 34.2 RDW 13.6 13.6 Plt Count 193 206 MPV 9.8 10.7 Immature Gran % 0.4 0.3 Seg Neutrophils % 68.7 86.9 Lymphocytes % 20.4 6.3 Monocytes % 9.3 6.2 Eosinophils % 0.9 0.1 Basophils % 0.3 0.2 Neutrophils # 4.8 10.2 H Lymphocytes # 1.4 0.7 Monocytes # 0.7 0.7 Eosinophils # 0.1 0.0 Basophils # 0.0 0.0 Urine Opiates Screen Negative Ur Barbiturates Screen Negative Ur Phencyclidine Scrn Negative Ur Amphetamines Screen Negative U Benzodiazepines Scrn Negative Urine Cocaine Screen Negative U Marijuana (THC) Screen Negative Baby's Blood Type Mother's Blood Type Rhogam Indicated 08/02/17 01:32 WBC RBC Hgb Hct MCV MCH MCHC RDW Plt Count MPV Immature Gran % Seg Neutrophils % Lymphocytes % Monocytes % Eosinophils % Basophils % Neutrophils # Lymphocytes # Monocytes # Eosinophils # Basophils # Urine Opiates Screen Ur Barbiturates Screen Ur Phencyclidine Scrn Ur Amphetamines Screen U Benzodiazepines Scrn Urine Cocaine Screen U Marijuana (THC) Screen Baby's Blood Type A RH NEGATIVE Mother's Blood Type A RH NEGATIVE Rhogam Indicated NO Labs on day of discharge: Labs from last 24 hours 08/02/17 01:32 Baby's Blood Type A RH NEGATIVE Mother's Blood Type A RH NEGATIVE Rhogam Indicated NO Date of admission: 08/01/17 06:08 Consults: 08/02/17 01:30 Consult to Mechanical Inspector [CONS] Routine Comment: Vaginal delivery, consult needed Discharging clinician: Katrin Ro Anticipated date of discharge: 08/03/17 - Patient Status Disposition: Home, Self-Care Condition: Good Functional capacity at discharge: independent ambulation Overall status at discharge: patient is progressing back to baseline - Discharge Instructions Follow Up With: Jeffrey Harvey MD [Partnered Physician] - - Diet and Activity Activity: increase activity as tolerated Diet: regular diet Hospital Course Reason for admission: induction of labor, IUP at term Delivery: Episiotomy: none Laceration: none Other procedures: none complications: none Discharge diagnosis: IUP at term delivered baby: male Time Attestation: Total time spent providing and/or coordinating discharge services: Time Spent: Less than 30 minutes Exam - Constitutional Vitals: Temp Pulse Resp BP Pulse Ox 98.6 F 84 14 125/66 98 08/03/17 08:23 08/03/17 08:23 08/03/17 08:23 08/03/17 08:23 08/03/17 08:23 General appearance IM: A&O X 3 - Respiratory Respiratory exam: Present: CTAB - Cardiovascular Cardiovascular exam IM: Present: RRR, +S1, +S2 - GI/Abdominal GI/Abdominal exam IM: normal bowel sounds, soft, no peritoneal signs - Rectal Rectal exam: deferred - Uterine Tone: Firm Uterus Position: 2 Fingers Below Umbilicus, Midline - Extremities Exam Extremities exam IM: Present: radial pulses palpable and symmetrical. Absent: pedal edema - Neurological Exam Neurological exam: alert, oriented X3 - Psychiatric Additional comments: Pt reports feeling excited about new infant and ready for discharge.
[2017-08-03] MEDS: Prenatal Vit/FA 1 EACH TABLET PO SCH (11:53)
[2017-08-03] MEDS: Ibuprofen 600 MG TABLET PO PRN (11:53)
[2017-08-03] MEDS: OXcarbazepine 150 MG TABLET PO SCH (11:54)
== END 2017-08-03 12:50 | disposition home or self-care (01) | DRG 560 ==
LOC: 1NENULAB 06:08 → 1NENUOBS 08-02 02:26
PROVIDERS: ADMIT Obstetrics & Gynecology; ATTEND Obstetrics & Gynecology

== ENCOUNTER 2020-04-17 08:12 | Inpatient (IN) ==
[2020-04-17] MEDS ORDERED: Naloxone 0.4 MG/ML INJ IVP PRN (08:41)
[2020-04-17] MEDS ORDERED: Metoclopramide 10 MG/2 ML VIAL IVP PRN (08:41)
[2020-04-17] MEDS ORDERED: *HR* FentaNYL (PF) 100 MCG/2 ML VIAL IVP PRN (08:41)
[2020-04-17] MEDS ORDERED: Ondansetron 4 MG/2 ML VIAL IVP PRN ×2 (08:41→18:09)
[2020-04-17] MEDS ORDERED: Lidocaine 1% 20 ML MDV INFILT PRN (08:41)
[2020-04-17] MEDS ORDERED: Azithromycin 500 MG in 0.9 % Sodium Chloride 250 ML IVPB ONE (08:41)
[2020-04-17] MEDS ORDERED: Famotidine 20 MG/2 ML VIAL IVP PRN (08:41)
[2020-04-17 09:06] LABS: Basophils % 0.3 %; Eosinophils # 0.1 K/mcL (0.0-0.6); Eosinophils % 0.7 %; Hematocrit 34.3 % (35.3-44.9); Hemoglobin 11.3 g/dL (11.5-15.4); Immature Granulocytes % 0.4 % (0-4); Lymphocytes # 1.3 K/mcL (0.6-4.6); Lymphocytes % 17.6 %; Mean Corpuscular HGB Conc 32.9 g/dL (31.6-35.5); Mean Corpuscular Hemoglobin 29.5 pg (28.0-33.3); Mean Corpuscular Volume 89.6 fL (83.0-100.0); Mean Platelet Volume 10.3 fL (9.4-12.4); Monocytes # 0.6 K/mcL (0.0-1.3); Monocytes % 7.5 %; Neutrophils # 5.5 K/mcL (1.6-8.9); Platelet Count 192 K/mcL (140-400); Red Blood Count 3.83 M/mcL (3.82-4.97); Red Cell Distribution Width 13.8 % (11.5-14.5); Segmented Neutrophils % 73.5 %; White Blood Count 7.5 K/mcL (4.3-11.1)
[2020-04-17] MEDS ORDERED: miSOPROStoL 25 MCG TABLET VG PRN (09:12)
[2020-04-17 09:15] LABS: Amphetamine Screen,Urine Negative ng/mL (Cutoff=1000); Barbiturate Screen,Urine Negative ng/mL (Cutoff=200); Benzodiazepines Screen,Urine Negative ng/mL (Cutoff=200); Cannabinoid Screen,Urine Negative ng/mL (Cutoff = 50); Cocaine Screen,Urine Negative ng/mL (Cutoff= 300); Opiate Screen,Urine Negative ng/mL (Cutoff=300); Phencyclidine Screen,Urine Negative ng/mL (Cutoff=25)
[2020-04-17] MEDS ORDERED: Oxytocin 20 units/ LR 1000 mL 20 UNIT/1,000 ML BAG IVC SCH ×2 (09:30→16:06)
[2020-04-17] MEDS ORDERED: EPHEDrine 50 MG/ML VIAL IVP PRN (09:35)
[2020-04-17] MEDS ORDERED: Epidural Premix (fent/bupiv) 110 ML EP SCH (09:45)
[2020-04-17] MEDS: Ringers Solution, Lactated 1,000 ML IVC SCH ×2 (10:08→16:35)
[2020-04-17] MEDS ORDERED: Ibuprofen 600 MG TABLET PO PRN (16:06)
[2020-04-17] MEDS ORDERED: Rho Immune Globulin 1,500 UNIT SYRINGE IM PRN (16:06)
[2020-04-17] MEDS ORDERED: Lanolin 7 G OINT...G. TP PRN (16:06)
[2020-04-17] MEDS ORDERED: Benzocaine/Menthol 56 GM AEROSOL SPRAY TP PRN (16:06)
[2020-04-17] MEDS ORDERED: Acetaminophen 325 MG TABLET PO PRN (16:06)
[2020-04-17] MEDS: OXcarbazepine 150 MG TABLET PO SCH (20:31)
[2020-04-18 06:29] LABS: Basophils % 0.4 %; Eosinophils # 0.1 K/mcL (0.0-0.6); Eosinophils % 1.7 %; Hematocrit 31.7 % (35.3-44.9); Hemoglobin 10.2 g/dL (11.5-15.4); Immature Granulocytes % 0.5 % (0-4); Lymphocytes # 2.1 K/mcL (0.6-4.6); Lymphocytes % 25.2 %; Mean Corpuscular HGB Conc 32.2 g/dL (31.6-35.5); Mean Corpuscular Hemoglobin 29.1 pg (28.0-33.3); Mean Corpuscular Volume 90.6 fL (83.0-100.0); Mean Platelet Volume 10.5 fL (9.4-12.4); Monocytes # 0.8 K/mcL (0.0-1.3); Monocytes % 9.5 %; Neutrophils # 5.3 K/mcL (1.6-8.9); Platelet Count 165 K/mcL (140-400); Red Cell Distribution Width 13.8 % (11.5-14.5); Segmented Neutrophils % 62.7 %; White Blood Count 8.5 K/mcL (4.3-11.1)
[2020-04-18 07:57] VITALS: BP 114/69
[2020-04-18] MEDS: OXcarbazepine 150 MG TABLET PO SCH (08:11)
[2020-04-18] MEDS ORDERED: Prenatal Vit/FA 1 EACH TABLET PO SCH (09:00)
== END 2020-04-18 16:07 | disposition home or self-care (01) | DRG 560 ==
LOC: 1NENULAB 08:12 → 1NENUOBS 17:45
PROVIDERS: ADMIT Obstetrics & Gynecology; ATTEND Obstetrics & Gynecology